=== PATIENT | female | born 1930 | race Caucasian/White ===

== ENCOUNTER 2017-04-22 12:42 | Emergency (ER) | payer MEDICARE, BC ==
--- NOTE | ~2017-04-22 | ER ---
PATIENT'S NAME: ANDREW UNGER [facility] AGE: 86 Y [address] ROOM: [place] [address] LOCATION: [facility] ADMIT DATE: 04/22/2017 ER/Outpatient Report DISCHARGE DATE: 04/22/2017 FAMILY PHYSICIAN: Michael Le MD ATTENDING PHYSICIAN: Stevenson Salmon CHIEF COMPLAINT: Chest pain and shortness of breath. HISTORY OF PRESENT ILLNESS: Ms. Unger presents for evaluation of chest discomfort and difficulties breathing. The symptoms started approximately sometime this morning. The exact time of onset is very vague. She has not seen anyone about this. She has not contacted her primary care provider. She is originally from [place] and has a very pleasant accent. There are no other specific complaints. She does state that she is anxious about not being home and is uncomfortable being here. She describes the chest discomfort as the heart racing with some pressure in the chest. She has no other obvious abnormalities. She is not taking any medicines other than her known prescription medications. She has a history of heart disease and possibly high cholesterol. She is a nonsmoker and denies drugs or alcohol use. PAST MEDICAL HISTORY: Documented on the record and reviewed by me. SOCIAL HISTORY: Documented on the record and reviewed by me. MEDICATIONS: Documented on the record and reviewed by me. ALLERGIES: DOCUMENTED ON THE RECORD AND REVIEWED BY ME. REVIEW OF SYSTEMS: All systems were reviewed and negative except as noted in the HPI. PHYSICAL EXAMINATION: VITAL SIGNS: Blood pressure 171/101, pulse 73, respiratory rate is 20, and SpO2 is 93% on room air. Pain is rated at 0/10, but pressure is present. GENERAL: Age-appropriate female, recumbent on the exam table, in no apparent pain or distress. NEUROLOGIC: The patient is awake and alert. GCS is 15. No focal deficits. No asymmetry. HEENT: Normocephalic, atraumatic. Eyes are PERRL. Oropharynx is clear. PATIENT'S NAME: ANDREW UNGER [facility] AGE: 86 Y [address] ROOM: [place] [address] LOCATION: [facility] ADMIT DATE: 04/22/2017 ER/Outpatient Report DISCHARGE DATE: 04/22/2017 FAMILY PHYSICIAN: Michael Le MD ATTENDING PHYSICIAN: Stevenson Salmon NECK: Supple. Trachea is midline. CHEST: Even and unlabored respirations. LUNGS: Clear to auscultation bilateral. No rhonchi, wheezes, or rales. HEART: Regular rate and rhythm with no murmurs. ABDOMEN: Soft, nontender, and nondistended. No rebound, guarding, or masses. BACK: Normal to inspection and palpation. EXTREMITIES: Warm and well-perfused with no visible abnormalities. The extremities are without deformities or edema. SKIN: Appears to be intact. IMAGING STUDIES: Chest x-ray is unremarkable per my review. The EKG was obtained and reviewed. There are no obvious abnormalities on the EKG. There may be a very slight delta wave on the precordial leads; however, this may be early manifestation of a right bundle pattern. She does not have a shortened NV interval consistent with WPW. LABORATORY DATA: Initial and repeat cardiac enzymes are all within normal limits. CMS with no appreciable abnormalities of electrolytes. Renal function is slightly decreased with a creatinine of 1.3. No gross LFT abnormalities. CBC without any unusual abnormalities. INR is 1.82, D-dimer is 0.3, lactate is 1.5. Of note, there are no comparison EKGs for this individual at our facility. IMPRESSION: 1. Chest pain, not otherwise specified. 2. Slightly low INR. EMERGENCY DEPARTMENT COURSE: The patient seen and evaluated as above. Acute coronary syndrome and PE are primary. Pneumonia, pneumothorax, Boerhaave syndrome, and dissection were all considered and felt to be unlikely. There is no overt physical evidence of heart failure and thus we will not test for that. D-dimer effectively excludes PE in this individual. She does have a slightly low INR. Serial cardiac enzymes are not elevated. EKG is reassuring. Recommend close followup with Dr. Le. Discussed case with him personally as well. The patient will need to see him in close followup. Symptoms were managed with a GI cocktail with complete resolution. All questions were answered and the patient was discharged in good condition. STEVENSON SALMON MD PATIENT'S NAME: ANDREW UNGER [facility] AGE: 86 Y [address] ROOM: [place], [place] [address] LOCATION: [facility] ADMIT DATE: 04/22/2017 ER/Outpatient Report DISCHARGE DATE: 04/22/2017 FAMILY PHYSICIAN: Michael Le MD ATTENDING PHYSICIAN: Stevenson Salmon/kate /[id number] d: 04/23/1739 t: 05/09/17 0909, OUTPATIENT REPORT
[~2017-04-22 12:42] MED LIST: ASPIRIN (CHILDR81 MG PO; COUMADIN ** 9/62 MG PO; COUMADIN **IA2.5 MG PO; LIPITOR80 MG PO; LISINOPRIL-HCT1 EACH PO; LOPRESSOR25 MG PO; NEURONTIN300 MG PO; TYLENOL325 MG PO
[2017-04-22 13:18] LABS: BASOPHIL % 0.5 %; EOSINOPHIL # 0.1 K/uL (0.0-0.5); EOSINOPHIL % 1.4 %; HEMATOCRIT 38.6 % (30.0-46.0); HEMOGLOBIN 12.8 g/dL (10.0-15.0); IMMATURE GRANULOCYTE % 0.2 %; LYMPHOCYTE # 2.6 K/uL (0.8-4.0); LYMPHOCYTE % 29.1 %; MCH 30.8 pg (27.0-34.0); MCHC 33.2 gm/dL (32.0-36.5); MONOCYTE # 0.7 K/uL (0.0-1.0); MONOCYTE % 8.1 %; MPV 9.8 fl (9.4-12.4); NEUTROPHIL # (ANC) 5.4 K/uL (1.8-7.8); NEUTROPHIL % 60.7 %; NRBC % 0 /100WBC (0-0.00); PLATELET COUNT 208 K/uL (150-450); RBC 4.15 M/uL (3.00-5.00); RDW-CV 12.6 % (11.9-14.6); WBC 8.9 K/uL (4.0-11.0)
[2017-04-22 13:27] LABS: INR - (THERAPEUTIC) 1.82 (0.92-1.07); PROTIME 19.2 SECONDS (9.8-11.4); PTT 34 SECONDS (25-32)
[2017-04-22 13:42] LABS: ALBUMIN 3.8 gm/dL (3.5-5.0); ALK PHOS 87 IU/L (33-138); ALT 25 IU/L (12-78); ANION GAP 12.9 (10.0-19.0); AST 21 IU/L (10-40); BLOOD UREA NITROGEN 29 mg/dL (6-24); CALCIUM 8.8 mg/dL (8.5-10.5); CHLORIDE 107 mMol/L (96-110); CO2 23 mMol/L (22-32); CPK 79 IU/L (21-215); CREATININE 1.3 mg/dL (0.5-1.1); POTASSIUM 3.9 mMol/L (3.7-5.1); SODIUM 139 mMol/L (135-145); TOTAL BILIRUBIN 0.7 mg/dL (0.0-1.5)
[2017-04-22 15:22] LABS: CPK 79 IU/L (21-215)
[2017-05-19] MEDS ORDERED: TYLENOL325 MG PO (13:14)
[2017-05-19] MEDS ORDERED: LASIX20 MG PO (13:16)
[2017-05-19] MEDS ORDERED: ZETIA10 MG PO (13:17)
[2017-05-19] MEDS ORDERED: LOPRESSOR50 MG PO (13:17)
[2017-05-19] MEDS ORDERED: PRAVACHOL40 MG PO (13:17)
[2017-05-19] MEDS ORDERED: NEURONTIN300 MG PO (13:17)
== END 2017-04-22 16:03 | disposition disaster alternative care site (69) ==
LOC: GMED 12:42
PROVIDERS: Emergency Medicine
DX: R07.9 Chest pain, unspecified (principal); R79.1 Abnormal coagulation profile; E78.00 Pure hypercholesterolemia, unspecified; Z88.8 Allergy status to other drugs, medicaments and biological substances; Z88.6 Allergy status to analgesic agent; Z79.82 Long term (current) use of aspirin; Z79.01 Long term (current) use of anticoagulants; Z79.899 Other long term (current) drug therapy

== ENCOUNTER 2017-05-24 06:59 | Outpatient (CLI) | payer MEDICARE, BC ==
[~2017-05-24] VITALS: Ht 157.5 cm; Wt 58.7 kg
--- NOTE | ~2017-05-24 | ENPV ---
Carotid Duplex Study Demographics Patient Name ANDREW VIRK Date of Study 05/24/2017 Patient Number [id number] Gender Female Date of 1930 Age 86 Visit Number [id number] Height 62 Weight 126.55 Number Referring Solomon Cuadra Interpreting Kai Mauricio MD Physician A MD Physician Solomon Flores MD Physician Ordering Solomon Cuadra Java Consultant Physician A Barrel Handler Heaven Guillaume BS, RT Conclusions Summary The right internal carotid artery has mild, 1-39%, plaque and stenosis. The left internal carotid artery has mild, 1-39%, plaque and stenosis. The right vertebral artery is present with antegrade flow. The left vertebral artery is present with antegrade flow. Calcific plaque at the bulb and proximal left internal carotid artery. Procedure Type of Study: Cerebral:Carotid, Carotid Doppler Bilateral. Additional Indications:pre angiogram Appropriate Use Criteria:6 Allergies - NSAIDS:(naproxen). - Other:(Ambien). Patient Status:Routine. Study Location:Vascular Lab. Technical Quality:Adequate visualization. Risk Factors - The patient's risk factor(s) include: arterial hypertension. - The patient's last creatinine was 1.2 mg/dl. Velocities are measured in cm/s ; Diameters are measured in cm Carotid Right Measurements Carotid Left Measurements + +--------+--------+ + + + +--------+ --------+ + + !Location !PSV !EDV !Angle !%Stenosis ! !Location !PSV ! EDV !Angle !%Stenosis ! + +--------+--------+ + + + +--------+ --------+ + + !Prox CCA !45 !6 !42 ! ! !Prox CCA !72 ! 11 !60 ! ! + +--------+--------+ + + + +--------+ --------+ + + !Dist CCA !55 !9 !42 ! ! !Dist CCA !62 ! 16 !60 ! ! + +--------+--------+ + + + +--------+ --------+ + + !Prox ICA !76 !12 !60 ! ! !Prox ICA !105 ! 18 !60 ! ! + +--------+--------+ + + + +--------+ --------+ + + !Dist ICA !89 !22 !60 ! ! !Dist ICA !70 ! 12 !48 ! ! + +--------+--------+ + + + +--------+ --------+ + + !Prox ECA !85 ! !60 ! ! !Prox ECA !71 ! !60 ! ! + +--------+--------+ + + + +--------+ --------+ + + !Vertebral !39 ! !60 ! ! !Vertebral !34 ! !60 ! ! + +--------+--------+ + + + +--------+ --------+ + + !Subclavian !107 ! !60 ! ! !Subclavian !161 ! !60 ! ! + +--------+--------+ + + + +--------+ --------+ + + - There is antegrade vertebral flow noted on the right side. - There is antegrade verte bral flow noted on the left side. - Add'l Measurements:ICAPSV/CCAPSV 2.ICAEDV/CCAEDV 3.69. - Add'l Measurements:ICAPS V/CCAPSV 1.46.ICAEDV/CCAEDV 1.65. Signature dtt: Reyes Carbajal dtd: 05/24/17 [facility] Physician Self Edit
--- NOTE | ~2017-05-24 | CATH ---
Peripheral Diagnostic + Interventional Report Demographics Patient Name SULLY Main Gender Female Date of 1930 Age 86 year(s) Patient Number [id number] Date of Study 05/24/2017 Visit Number [id number] Room Number G63[address] [place] [id number] Ht 157.48 cm Wt 57.4 kg Referring Mimi Rebollarmichel Fajardo Primary Physician Physician MD Solomon Flores MD Performing Solomon Secondary Physician Physician Venecia Flores MD Diagnostic Solomon Assisting Physician Physician Venecia Flores MD Interventional Efstrajason Physician Motion Picture Director Physician Venecia Flores MD Findings and Conclusions Procedure Description 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 The procedure was explained in detail to the patient. Risks, complications and alternative treatments were reviewed. Written consent was obtained. Medications Reviewed with Patient prior to Procedure. Angiographic Findings Peripheral Arteries and Lesion Findings Brachial, Left: Procedure Data Procedure Date Date: 05/24/2017Start: 11:50 AMEnd: 02:46 PM Entry Locations - Retrograde Percutaneous access was performed through the Right Femoral artery (Primary location). A 6 Fr sheath was inserted. Hemostasis was successfully obtained using Manual Compression. Closure Comments: Pressure held for 20 minutes by Naima Serrano, RT.. - Retrograde Percutaneous access was performed through the Right Brachial artery. A 6 Fr sheath was inserted. Hemostasis was successfully obtained using Manual Compression. Closure Comments: Pressure held for 20 minutes by Andrey Ferguson RT.. Procedure Medications Order and Administration + + + +--------+ !Time !Medication !Dosage !Route ! + + + +--------+ !05/24/2017 11:52 AM !Fentanyl !25 mcg !I.V. ! + + + +--------+ !05/24/2017 12:00 PM !Oxygen !2 l/min !NC ! + + + +--------+ !05/24/2017 12:01 PM !Oxygen !4 l/min !NC ! + + + +--------+ !05/24/2017 12:08 PM !Heparin (ACC_3) !4000 units !I.V. ! + + + +--------+ !05/24/2017 12:14 PM !Fentanyl !25 mcg !I.V. ! + + + +--------+ !05/24/2017 12:23 PM !Oxygen !2 l/min !NC ! + + + +--------+ !05/24/2017 12:52 PM !Fentanyl !25 mcg !I.V. ! + + + +--------+ !05/24/2017 01:37 PM !Fentanyl !25 mcg !I.V. ! + + + +--------+ Devices Used - A6 Fr. BS JR 4 Diag. Catheterwas used for:Subclavian Angiogram. - A5 Fr. TrailBlazer .035 x 90was used for:Upper Extremity. Fluoroscopy Time: Diagnostic: 16:18 minutes. Total: 16:18 minutes. Fluoroscopy Dose: Diagnostic: 122 mGy. Total: 122 mGy. Estimated Blood Loss: 10 ml. Medical History Performed Procedures and Imaging Results - No ACC stress or imaging studies were performed. Allergies - NSAIDS:(naproxen). - Other:(Ambien). Risk Factors The patient risk factors include:peripheral arterial disease, cerebrovascular disease, hypertension, last creatinine: 1.2 mg/dl and creatinine clearance: 29.36 ml/min. Admission Data Admission Date: 05/24/2017 Admission Time: 06:59 AM Admit Source: Other Insurance Payors: Medicare. Snapshots Hemodynamics Condition: Rest O2 Consumption: Estimated: 137.33Heart Rate: 68 bpm Pressures (mmHg) + + + !Site !Pressure ! + + + !AO !170/43 (89) ! + + + !R Marah !129/44 (76) ! + + + Shunts Oxygen Values O2 Capacity 167.28 O2 Consumption 137.33 Discharge Data Discharge Date: 05/25/2017 Hospital Status: Outpatient Signatures dtt: Reyes Carbajal dtd: 05/24/17 1150 Physician Self Edit
[~2017-05-24 06:59] MED LIST changes: +LASIX20 MG PO; +LOPRESSOR50 MG PO; +PRAVACHOL40 MG PO; +ZETIA10 MG PO
[2017-05-24 08:34] LABS: BASOPHIL % 0.5 %; EOSINOPHIL # 0.1 K/uL (0.0-0.5); EOSINOPHIL % 2.5 %; HEMATOCRIT 37.9 % (30.0-46.0); HEMOGLOBIN 12.3 g/dL (10.0-15.0); IMMATURE GRANULOCYTE % 0.4 %; LYMPHOCYTE # 1.8 K/uL (0.8-4.0); LYMPHOCYTE % 33.2 %; MCH 30.8 pg (27.0-34.0); MCHC 32.5 gm/dL (32.0-36.5); MCV 94.8 fl (83.0-98.0); MONOCYTE # 0.6 K/uL (0.0-1.0); MONOCYTE % 11.4 %; MPV 9.1 fl (9.4-12.4); NEUTROPHIL # (ANC) 2.9 K/uL (1.8-7.8); NRBC % 0 /100WBC (0-0.00); PLATELET COUNT 184 K/uL (150-450); RDW-CV 13.7 % (11.9-14.6); WBC 5.5 K/uL (4.0-11.0)
[2017-05-24 08:42] LABS: PTT 28 SECONDS (25-32)
[2017-05-24 08:43] LABS: INR - (THERAPEUTIC) 1.24 (0.92-1.07)
[2017-05-24 08:49] LABS: ALBUMIN 3.5 gm/dL (3.5-5.0); CALCIUM 8.8 mg/dL (8.5-10.5); CREATININE 1.2 mg/dL (0.5-1.1); TOTAL PROTEIN 6.9 g/dL (6.0-8.4)
[2017-05-24 08:50] LABS: TOTAL BILIRUBIN 1.2 mg/dL (0.0-1.5)
--- NOTE | 2017-05-24 18:16 | NUR ---
Significant Event: A/O X 3. RT. BRACHAIL ARTERY BALLOON, VIA RT. RADIAL WAS TOO SMALL, THEN RT. FEMORAL WAS USED FOR PICTURES ONLY. RT. BRACHIAL SITE FOR PROCEDURE. SOME SWELLING OF RT. UPPER ARM. ALL SITES SHEREEN HOLDS. SITE IS MEASURED. NO RESP. DISTRESS. ROOM AIR 0XYGEN. AFEBRILE SBP ELEVATED, GIVEN NORVASC AND COREG INITIATED. Follow up: CONT. TO MONITER POST ARTERIAL PROCEDURE.
[2017-05-25 03:23] LABS: BASOPHIL % 0.4 %; EOSINOPHIL # 0.1 K/uL (0.0-0.5); HEMATOCRIT 33.7 % (30.0-46.0); HEMOGLOBIN 10.8 g/dL (10.0-15.0); IMMATURE GRANULOCYTE % 0.3 %; LYMPHOCYTE # 1.6 K/uL (0.8-4.0); LYMPHOCYTE % 22.6 %; MCH 30.7 pg (27.0-34.0); MCV 95.7 fl (83.0-98.0); MONOCYTE # 0.6 K/uL (0.0-1.0); MONOCYTE % 9.1 %; MPV 9.3 fl (9.4-12.4); NEUTROPHIL # (ANC) 4.7 K/uL (1.8-7.8); NEUTROPHIL % 66.6 %; NRBC % 0 /100WBC (0-0.00); PLATELET COUNT 162 K/uL (150-450); RBC 3.52 M/uL (3.00-5.00); RDW-CV 13.8 % (11.9-14.6)
[2017-05-25 03:40] LABS: ALBUMIN 3.1 gm/dL (3.5-5.0); CALCIUM 8.3 mg/dL (8.5-10.5); CREATININE 1.1 mg/dL (0.5-1.1); PHOSPHORUS 3.5 mg/dL (2.5-4.9)
--- NOTE | 2017-05-25 04:57 | NUR ---
Pt a/o x4. VSS on RA, afebrile. IV to LFA SL. SBA, GB. Does get dizzy if standing too long. HS coreg not given d/t previous low bps at start of shift. States she gets dizzy at standing at home as well. R radial site-benign, R bracial site benign. NABIL bruised and hard-no changes throughout shift. Has measured 28-29 scm all shift. R groin site bening. Gave 2 APAP at 0034 with relief noted. Had bm. Wilburn out at 3rd assessment (roughly 230ish). Plan: D/c home today if no other problems
[2017-05-25] MEDS ORDERED: COREG12.5 MG PO (09:23)
== END 2017-05-25 12:20 | disposition disaster alternative care site (69) ==
LOC: GPCU 06:59 → GCAT 06:59 → GPCU 07:00 → GPOC 07:00 → GPCU 14:10 → GPOC 15:00 → GCAT 05-25 12:20
PROVIDERS: Internal Medicine Cardiovascular Disease
PROC: 03773ZZ Dilation of Right Brachial Artery, Percutaneous Approach (ICD-10-PCS; principal; 2017-05-25)
PROC: B311YZZ Fluoroscopy of Right Brachiocephalic-Subclavian Artery using Other Contrast (ICD-10-PCS; 2017-05-25)
DX: M79.601 Pain in right arm (principal); G45.9 Transient cerebral ischemic attack, unspecified
CPT/HCPCS: C1725; C1769; C1894; J1644; J2001; J3010; J7030

== ENCOUNTER 2017-05-29 11:08 | Emergency (ER) | payer MEDICARE, BC ==
--- NOTE | ~2017-05-29 | ER ---
PATIENT'S NAME: ANDREW CORONEL [facility] AGE: 86 Y [address] ROOM: [place] [address] LOCATION: [facility] ADMIT DATE: 05/29/2017 ER/Outpatient Report DISCHARGE DATE: 05/29/2017 FAMILY PHYSICIAN: Michael Le MD ATTENDING PHYSICIAN: Stevenson Horton CHIEF COMPLAINT: Spreading bruise and tingling sensation in the right arm. HISTORY OF PRESENT ILLNESS: Ms. Coronel presents for evaluation of her right arm. She has been having some peripheral vascular disease issues and was seen by Dr. Carbajal recently for angioplasty. 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 She received balloon angioplasty at that time from Dr. Carbajal with entrances in the right brachial region as well as the right groin. The right groin is not bothering her at all. Over the last 24 hours, she has developed a tingling sensation in her right forearm, that does not involve the hand. The bruising is also continuing to spread down towards her hand, which was concerning for her, and that is why she came in. Her shortness of breath is at baseline. She has not restarted any of her anticoagulation. PAST MEDICAL HISTORY: As documented on the record and reviewed by me. SOCIAL HISTORY: As documented on the record and reviewed by me. MEDICATIONS: As documented on the record and reviewed by me. ALLERGIES: DOCUMENTED ON THE RECORD AND REVIEWED BY ME. REVIEW OF SYSTEMS: All systems reviewed and negative except as noted in the HPI. PHYSICAL EXAMINATION: VITAL SIGNS: Blood pressure 188/75, pulse is 86, respiratory rate is 28, temperature is 97.6, and SpO2 is 96% on room air. Pain is 0/10. GENERAL: An age appropriate female, recumbent on the exam table, no apparent pain or distress. NEUROLOGIC: Awake and alert. GCS is 15. No focal deficits. No asymmetry. There is no weakness in the hands, bilateral. HEENT: Normocephalic, atraumatic. Eyes are PERRL. Oropharynx is clear. PATIENT'S NAME: ANDREW CORONEL [facility] AGE: 86 Y [address] ROOM: [place] [address] LOCATION: [facility] ADMIT DATE: 05/29/2017 ER/Outpatient Report DISCHARGE DATE: 05/29/2017 FAMILY PHYSICIAN: Michael Le MD ATTENDING PHYSICIAN: Stevenson Horton NECK: Supple. Trachea is midline. CHEST/HEART: Regular rate and rhythm. No murmurs. LUNGS: Clear to auscultation bilaterally. No rhonchi, wheezes, or rales. ABDOMEN: Benign. The right groin is notable for some ecchymosis, but no significant swelling, edema, or pain. BACK: Normal to inspection. MUSCULOSKELETAL: The right upper extremity is notable for extensive dependent ecchymosis. There are soft compartments of the arm and forearm. There is no pain with range of motion of the hand or wrist. The patient has intact strength to flexion and extension of the elbow and shoulder. The brachial puncture site is with minimal induration. No erythema or focal warmth. The patient has a strong radial pulse. SKIN: Clean, dry, and intact with ecchymosis as noted above. LABORATORY DATA AND X-RAYS: Right upper extremity ultrasound is reported by tech as no DVT, no vascular occlusion, and no obvious hematomas. IMPRESSION: Paresthesias and extensive ecchymosis of the right upper extremity, status post procedure with angioplasty. EMERGENCY DEPARTMENT COURSE: The patient was seen and evaluated as above. Hemodynamically stable. There was mild concern for possible nerve compression based on her neuropathy-type presentation. She has no sensory deficits, no pain with motion of the hand, she has soft compartments. I do not think that the patient has compartment syndrome at this time. The vessels appear patent on ultrasound by report. We will recommend Ms. Coronel follow up with her primary care physician as needed. Follow up with Dr. Carbajal this week with further concerns and return immediately if there is increasing pain or weakness of her hand or any other sensory changes that are new or different. She expressed her understanding, as did her daughter. All questions were answered, and the patient was discharged in good condition. MD JOE GREEN/kate /[id number] d: 05/29/172008 t: 06/07/17 1045, OUTPATIENT REPORT
--- NOTE | ~2017-05-29 | ENPV ---
Vascular Upper Extremities Veins Procedure Demographics Patient Name ANDREW VIRK Date of Study 05/29/2017 Patient Number [id number] Gender Female Date of 1930 Age 86 Visit Number [id number] Height Accession Number [id number] Weight Room Number BSA BMI Referring Mimi Fajardo Suha Mauricio MD Physician MD Physician Clifford Gamino MD Physician Ordering Physician Clifford Gamino MD Director Of Purchasing Project Administrator Benson Gant, RVT Conclusions Summary No evidence of deep vein thrombosis in the right upper extremity. No evidence of superficial thrombus in the right upper extremity. Procedure Type of Study: Veins:Upper Extremities Veins, Upper Extremity Right. Indications for Study:Pain, edema, discoloration and Unilateral pain and edema. Additional Indications:Right upper extremity pain/edema/discoloration Appropriate Use Criteria:9 Allergies - NSAIDS:(naproxen). - Other:(Ambien). Patient Status:STAT. Study Location:ER. Technical Quality:Adequate visualization. - Preliminary reported to: in the ED @8365. Velocities are measured in cm/s ; Diameters are measured in cm Right UE Vein Measurements 2D and Doppler Measurements + + + + +--------+--------+ !Location !Visualized !Compressibility !Thrombosis !Signal !Reflux ! + + + + +--------+--------+ !IJV !Yes !Yes !None !Phasic ! ! + + + + +--------+--------+ !SCV !Yes ! !None !Phasic ! ! + + + + +--------+--------+ !Innominate !Yes ! !None !Phasic ! ! + + + + +--------+--------+ !Axillary !Yes ! !None !Phasic ! ! + + + + +--------+--------+ !Brachial !Yes !Yes !None !Phasic ! ! + + + + +--------+--------+ !Radial !Yes !Yes !None !Phasic ! ! + + + + +--------+--------+ !Ulnar !Yes !Yes !None !Phasic ! ! + + + + +--------+--------+ !Basilic !Yes !Yes !None !Phasic ! ! + + + + +--------+--------+ !Cephalic !Yes !Yes !None !Phasic ! ! + + + + +--------+--------+ Left UE Vein Measurements 2D and Doppler Measurements + + + + +--------+ + !Location !Visualized !Compressibility !Thrombosis !Signal !Reflux ! + + + + +--------+ + !SCV !Yes ! !None !Phasic ! ! + + + + +--------+ + Signature dtt: GABE PEREIRA dtd: 05/29/17 1301 Physician Self Edit
[~2017-05-29 11:08] MED LIST changes: +COREG12.5 MG PO
== END 2017-05-29 14:01 | disposition disaster alternative care site (69) ==
LOC: GMED 11:08
DX: R20.2 Paresthesia of skin (principal); M79.89 Other specified soft tissue disorders; M79.631 Pain in right forearm; R58 Hemorrhage, not elsewhere classified; Y84.8 Other medical procedures as the cause of abnormal reaction of the patient, or of later complication, without mention of misadventure at the time of the procedure; I50.9 Heart failure, unspecified; Z86.73 Personal history of transient ischemic attack (TIA), and cerebral infarction without residual deficits; Z88.8 Allergy status to other drugs, medicaments and biological substances; Z79.01 Long term (current) use of anticoagulants; Z79.82 Long term (current) use of aspirin; Z79.899 Other long term (current) drug therapy

== ENCOUNTER 2017-06-04 11:05 | Emergency (ER) | payer MEDICARE, BC ==
--- NOTE | ~2017-06-04 | ER ---
PATIENT'S NAME: ANDREW VIRK [facility] AGE: 86 Y [address] ROOM: [place] [id number] [facility] ADMIT DATE: 06/04/2017 ER/Outpatient Report DISCHARGE DATE: 06/04/2017 FAMILY PHYSICIAN: Michael Le MD ATTENDING PHYSICIAN: Leslie Haddad Time of Arrival: 1111 hours. Time of Exam: 1111 hours. CHIEF COMPLAINT: Fall. HISTORY OF PRESENT ILLNESS: The patient states that she has been having difficulty sleeping the last couple of nights. She did take some Tylenol PM last night, said that she was sleeping well until about 2 o'clock this morning she woke up thirsty, so she did walk into her kitchen. While she was in the kitchen, she reports she did get dizzy and had a ground level fall. She has pain of her right elbow area and possibly hit her head. She did not have any loss of consciousness, does not have any pain of her head or neck. She is concerned because her right elbow continues to be sore. She has had problems with her right shoulder off and on for quite some time. She had gotten a shot of some steroids last week. She had an occlusion of the right brachial artery and had a balloon angioplasty done that had complications. Has ecchymosis of that right arm, but the patient and her daughter both state it is looking much better than what it had been. ALLERGIES: AMBIEN AND ALEVE. CURRENT MEDICATIONS: On her chart and reviewed by me. PAST MEDICAL HISTORY: Multiple CVAs, heart disease, and dizziness. PAST SURGERIES: Cholecystectomy and right upper extremity artery angioplasty in April of 2017. SOCIAL HISTORY: She lives at home with her . Denies use of tobacco, drugs, or alcohol. REVIEW OF SYSTEMS: All negative other than those mentioned in the HPI. PATIENT'S NAME: ANDREW VIRK [facility] AGE: 86 Y [address] ROOM: [place] [address] LOCATION: [facility] ADMIT DATE: 06/04/2017 ER/Outpatient Report DISCHARGE DATE: 06/04/2017 FAMILY PHYSICIAN: Michael Le MD ATTENDING PHYSICIAN: Leslie Haddad PHYSICAL EXAMINATION: VITAL SIGNS: She weighed 58.8 kg. Blood pressure is 166/71, pulse is 79, respirations 18, temperature of 98.5 tympanic, and O2 saturation is 98% on room air. GENERAL: She is awake, alert, and oriented x4. SKIN: [place], warm, and dry. RESPIRATIONS: Even and nonlabored. Lung sounds are clear throughout. HEART: Regular rate and rhythm. MUSCULOSKELETAL: She walks in with a steady even gait. She has bruising noted of her entire right arm. She is tender to palpate over the lateral elbow area. She has strong radial and ulnar pulses. She has good movement of her right arm. EMERGENCY ROOM COURSE: EKG was completed, it shows a sinus rhythm. It is unchanged from her previous EKG. CBC is within normal limits. Chem panel is within normal limits. Her pro time is 14 with an INR of 1.33. Elbow and wrist x-rays on the right side were completed, reviewed with Dr. Haddad. No bony abnormality is seen. CT of the head and C-spine were completed, radiologist reports no acute process. The patient's vitals remained stable throughout the ER visit. She is awake and alert. IMPRESSION: 1. Right elbow contusion. 2. Right shoulder pain which she is being treated for. 3. Dizziness, which is a continuation problem. PLAN: Home, rest. Ice to the elbow area. Tylenol as needed. The patient denied wanting anything stronger for pain. If symptoms do not improve in the next 2 to 3 days, encouraged her to follow up with her primary provider. She and her daughter verbalized understanding. LENNOX RANDALL APRN FOR MD STEVE VILLANUEVA/kate /[id number] d: 06/04/172004 t: 06/07/17905, OUTPATIENT REPORT
[2017-06-04 11:28] LABS: BASOPHIL % 0.2 %; EOSINOPHIL % 0.6 %; HEMATOCRIT 34.6 % (30.0-46.0); HEMOGLOBIN 11.3 g/dL (10.0-15.0); IMMATURE GRANULOCYTE # 0.1 K/uL (0.0-0.3); IMMATURE GRANULOCYTE % 1.1 %; LYMPHOCYTE # 1.8 K/uL (0.8-4.0); LYMPHOCYTE % 27.2 %; MCHC 32.7 gm/dL (32.0-36.5); MCV 94.8 fl (83.0-98.0); MONOCYTE # 0.6 K/uL (0.0-1.0); MONOCYTE % 9.6 %; MPV 8.8 fl (9.4-12.4); NEUTROPHIL # (ANC) 4.1 K/uL (1.8-7.8); NEUTROPHIL % 61.3 %; NRBC % 0 /100WBC (0-0.00); RBC 3.65 M/uL (3.00-5.00); RDW-CV 14.2 % (11.9-14.6); WBC 6.7 K/uL (4.0-11.0)
[2017-06-04 11:31] LABS: PLATELET COUNT 227 K/uL (150-450)
[2017-06-04 11:38] LABS: INR - (THERAPEUTIC) 1.33 (0.92-1.07)
[2017-06-04 11:45] LABS: ALBUMIN 3.7 gm/dL (3.5-5.0); ANION GAP 9.7 (10.0-19.0); CALCIUM 8.7 mg/dL (8.5-10.5); CREATININE 1.3 mg/dL (0.5-1.1); POTASSIUM 3.7 mMol/L (3.7-5.1); TOTAL BILIRUBIN 1.1 mg/dL (0.0-1.5); TOTAL PROTEIN 7.3 g/dL (6.0-8.4)
== END 2017-06-04 13:24 | disposition disaster alternative care site (69) ==
LOC: GACC 11:05
PROVIDERS: Nurse Practitioner Family
DX: S50.01XA Contusion of right elbow, initial encounter (principal); M25.511 Pain in right shoulder; R42 Dizziness and giddiness; Z90.49 Acquired absence of other specified parts of digestive tract; Z79.82 Long term (current) use of aspirin; Z79.01 Long term (current) use of anticoagulants; Z88.8 Allergy status to other drugs, medicaments and biological substances; W19.XXXA Unspecified fall, initial encounter; Y93.01 Activity, walking, marching and hiking; Y92.000 Kitchen of unspecified non-institutional (private) residence as the place of occurrence of the external cause